=== PATIENT | female | born 1935 | race Caucasian/White ===

== ENCOUNTER 2021-07-10 12:45 | Observation (INO) ==
[2021-07-10] MEDS ORDERED: Ondansetron 4 MG/2 ML VIAL IVP ONE (12:51)
[2021-07-10] MEDS ORDERED: 0.9 % Sodium Chloride 500 ML IVC ONE (12:53)
[2021-07-10] MEDS ORDERED: 0.9 % Sodium Chloride 1,000 ML IVC SCH ×2 (13:00→15:54)
[2021-07-10 13:17] LABS: Bilirubin,Urine Negative (Negative); Blood,Urine Moderate (Negative); Clarity,Urine Clear (Clear); Color,Urine Yellow (Yellow); Glucose,Urine (UA) >=1000 mg/dL (Normal); Ketones,Urine Negative (Negative); Leukocyte Esterase,Urine Trace (Negative); Nitrite,Urine Negative (Negative); Protein,Urine 30 mg/dL (Neg-Trace); Specific Gravity,Urine 1.015 (1.010-1.025); Urobilinogen,Urine Normal (Normal)
[2021-07-10 13:24] LABS: Basophils % 0.2 %; Hematocrit 41.8 % (35.3-44.9); Hemoglobin 13.3 g/dL (11.5-15.4); Immature Granulocytes % 0.6 % (0-4); Lymphocytes # 0.6 K/mcL (0.6-4.6); Lymphocytes % 3.2 %; Mean Corpuscular HGB Conc 31.8 g/dL (31.6-35.5); Mean Corpuscular Hemoglobin 29.7 pg (28.0-33.3); Mean Corpuscular Volume 93.3 fL (83.0-100.0); Monocytes # 0.6 K/mcL (0.0-1.3); Monocytes % 3.3 %; Neutrophils # 16.4 K/mcL (1.6-8.9); Platelet Count 181 K/mcL (140-400); Red Blood Count 4.48 M/mcL (3.82-4.97); Red Cell Distribution Width 15.3 % (11.5-14.5); Segmented Neutrophils % 92.7 %; White Blood Count 17.7 K/mcL (4.3-11.1)
[2021-07-10 13:25] LABS: Squamous Epithelial Cell,Urine Few per hpf (None-Few)
[2021-07-10 13:32] LABS: INR 2.2; Prothrombin Time 24.6 Seconds (9.4-12.1)
[2021-07-10 13:34] LABS: Activated Partial Thrombo Time 35.1 Seconds (26.0-36.0)
[2021-07-10] MEDS ORDERED: cefTRIAXone 2,000 MG in 0.9 % Sodium Chloride Mini Bag 100 ML IVPB ONE (13:34)
[2021-07-10 13:43] LABS: Albumin 3.2 g/dL (3.5-5.7); Bilirubin,Total 1.1 mg/dL (0.3-1.0); Calcium 8.4 mg/dL (8.6-10.3); Globulin 3.2 g/dL (2.4-3.5); Magnesium 1.8 mg/dL (1.6-2.6); Potassium 4.5 mEq/L (3.5-5.1); Total Protein 6.4 g/dL (6.4-8.9); Troponin I 0.03 ng/mL (< 0.04)
[2021-07-10] MEDS ORDERED: Ondansetron 4 MG/2 ML VIAL IVP PRN (15:27)
[2021-07-10] MEDS ORDERED: Naloxone 0.4 MG/ML INJ IVP PRN (15:27)
[2021-07-10] MEDS ORDERED: Melatonin 3 MG TABLET PO PRN (15:27)
[2021-07-10] MEDS ORDERED: Mag Hydrox/Al Hydrox/Simeth 30 ML UDC PO PRN (15:27)
[2021-07-10] MEDS ORDERED: MOM Conc 10 ML UD.LIQ PO PRN (15:27)
[2021-07-10] MEDS ORDERED: *HR* Dextrose 50 % in Water (Syg) 50 ML SYRINGE IVP PRN (15:45)
[2021-07-10] MEDS ORDERED: Dextrose 4 GM Chewable Tablets PO PRN ×2 (15:45)
[2021-07-10] MEDS ORDERED: D5% in Water 1,000 ML IVC PRN (15:45)
[2021-07-10] MEDS ORDERED: DilTIAZem CD (24hr) 180 MG CAP.ER.24H PO STA (16:23)
[2021-07-10] MEDS ORDERED: Metoprolol XL (24 HR) Succ 25 MG TAB.ER.24H PO STA (16:23)
[2021-07-10] MEDS: Acetaminophen 325 MG TABLET PO PRN (17:25)
[2021-07-10] MEDS: *HR* Glimepiride 4 MG TABLET PO SCH (17:26)
[2021-07-10] MEDS: Insulin LISPRO 300 UNITS/3 ML VIAL SUBQ SCH ×2 (17:31→21:20)
[2021-07-10] MEDS: *HR* Rivaroxaban 15 MG TABLET PO SCH ×2 (17:57→18:04)
[2021-07-10] MEDS: Doxycycline 100 MG CAPSULE PO SCH (22:36)
[2021-07-10] MEDS: Nystatin POWDER 30 GM BOTTLE TP SCH (22:37)
[2021-07-11] MEDS: Acetaminophen 325 MG TABLET PO PRN (02:51)
[2021-07-11 07:31] LABS: Calcium 8.2 mg/dL (8.6-10.3); Potassium 4.2 mEq/L (3.5-5.1)
[2021-07-11 07:33] LABS: Basophils # 0.1 K/mcL (0.0-0.2); Basophils % 0.3 %; Eosinophils % 0.1 %; Immature Granulocytes % 0.3 % (0-4); Lymphocytes # 3.3 K/mcL (0.6-4.6); Lymphocytes % 19.2 %; Mean Corpuscular HGB Conc 30.4 g/dL (31.6-35.5); Mean Corpuscular Hemoglobin 30.3 pg (28.0-33.3); Mean Corpuscular Volume 99.6 fL (83.0-100.0); Mean Platelet Volume 10.4 fL (9.4-12.4); Monocytes # 1.3 K/mcL (0.0-1.3); Monocytes % 7.7 %; Neutrophils # 12.3 K/mcL (1.6-8.9); Platelet Count 175 K/mcL (140-400); Red Blood Count 4.62 M/mcL (3.82-4.97); Red Cell Distribution Width 15.9 % (11.5-14.5); Segmented Neutrophils % 72.4 %
[2021-07-11] MEDS: Insulin LISPRO 300 UNITS/3 ML VIAL SUBQ SCH ×4 (08:06→22:00)
[2021-07-11] MEDS: DilTIAZem CD (24hr) 180 MG CAP.ER.24H PO SCH (08:08)
[2021-07-11] MEDS: *HR* Glimepiride 4 MG TABLET PO SCH (08:08)
[2021-07-11] MEDS: Nystatin POWDER 30 GM BOTTLE TP SCH ×2 (08:09→22:00)
[2021-07-11] MEDS: Doxycycline 100 MG CAPSULE PO SCH (08:09)
[2021-07-11] MEDS: Metoprolol XL (24 HR) Succ 25 MG TAB.ER.24H PO SCH (08:09)
[2021-07-11] MEDS ORDERED: 0.9 % Sodium Chloride 1,000 ML IVC SCH (10:00)
[2021-07-11] MEDS ORDERED: cefTRIAXone 2,000 MG in 0.9 % Sodium Chloride Mini Bag 100 ML IVPB SCH (14:00)
[2021-07-11] MEDS ORDERED: *HR* Rivaroxaban 15 MG TABLET PO SCH (17:00)
[2021-07-12] MEDS: Metoprolol XL (24 HR) Succ 25 MG TAB.ER.24H PO SCH (07:52)
[2021-07-12] MEDS: DilTIAZem CD (24hr) 180 MG CAP.ER.24H PO SCH (07:52)
[2021-07-12] MEDS: Nystatin POWDER 30 GM BOTTLE TP SCH ×2 (07:53→21:40)
[2021-07-12] MEDS: Insulin LISPRO 300 UNITS/3 ML VIAL SUBQ SCH ×4 (07:54→21:40)
[2021-07-12 08:17] LABS: Basophils % 0.2 %; Eosinophils # 0.1 K/mcL (0.0-0.6); Eosinophils % 0.8 %; Hematocrit 43.2 % (35.3-44.9); Hemoglobin 13.7 g/dL (11.5-15.4); Immature Granulocytes % 0.4 % (0-4); Lymphocytes # 1.5 K/mcL (0.6-4.6); Lymphocytes % 17.5 %; Mean Corpuscular HGB Conc 31.7 g/dL (31.6-35.5); Mean Corpuscular Hemoglobin 29.7 pg (28.0-33.3); Mean Corpuscular Volume 93.7 fL (83.0-100.0); Monocytes # 1.2 K/mcL (0.0-1.3); Monocytes % 13.7 %; Neutrophils # 5.7 K/mcL (1.6-8.9); Platelet Count 190 K/mcL (140-400); Red Blood Count 4.61 M/mcL (3.82-4.97); Red Cell Distribution Width 15.7 % (11.5-14.5); Segmented Neutrophils % 67.4 %; White Blood Count 8.4 K/mcL (4.3-11.1)
[2021-07-12 08:34] LABS: Potassium 4.5 mEq/L (3.5-5.1)
[2021-07-12] MEDS: Cefdinir 300 MG CAPSULE PO SCH ×2 (14:21→21:37)
[2021-07-12] MEDS: *HR* Rivaroxaban 15 MG TABLET PO SCH (16:12)
[2021-07-13 05:49] LABS: Basophils % 0.4 %; Eosinophils # 0.2 K/mcL (0.0-0.6); Eosinophils % 2.5 %; Hematocrit 39.8 % (35.3-44.9); Hemoglobin 12.5 g/dL (11.5-15.4); Immature Granulocytes % 0.6 % (0-4); Lymphocytes # 1.9 K/mcL (0.6-4.6); Lymphocytes % 24.5 %; Mean Corpuscular HGB Conc 31.4 g/dL (31.6-35.5); Mean Corpuscular Hemoglobin 29.6 pg (28.0-33.3); Mean Corpuscular Volume 94.1 fL (83.0-100.0); Monocytes # 1.1 K/mcL (0.0-1.3); Monocytes % 14.2 %; Neutrophils # 4.5 K/mcL (1.6-8.9); Platelet Count 197 K/mcL (140-400); Red Blood Count 4.23 M/mcL (3.82-4.97); Red Cell Distribution Width 15.4 % (11.5-14.5); Segmented Neutrophils % 57.8 %; White Blood Count 7.8 K/mcL (4.3-11.1)
[2021-07-13 07:04] LABS: Potassium 4.8 mEq/L (3.5-5.1)
[2021-07-13 10:06] LABS: Estimated Average Glucose 169 mg/dl; Hemoglobin A1C 7.5 %
[2021-07-13] MEDS: Metoprolol XL (24 HR) Succ 25 MG TAB.ER.24H PO SCH (10:59)
[2021-07-13] MEDS: DilTIAZem CD (24hr) 180 MG CAP.ER.24H PO SCH (10:59)
[2021-07-13] MEDS: Cefdinir 300 MG CAPSULE PO SCH (10:59)
[2021-07-13] MEDS: Nystatin POWDER 30 GM BOTTLE TP SCH ×2 (11:08→22:06)
[2021-07-13] MEDS: Insulin LISPRO 300 UNITS/3 ML VIAL SUBQ SCH ×4 (11:08→22:05)
[2021-07-13] MEDS: Nitrofurantoin (BID) 100 MG CAPSULE PO SCH (18:03)
[2021-07-13] MEDS: Furosemide 20 MG TABLET PO SCH (18:04)
[2021-07-13] MEDS: *HR* Rivaroxaban 15 MG TABLET PO SCH (18:04)
[2021-07-14] MEDS: Insulin LISPRO 300 UNITS/3 ML VIAL SUBQ SCH ×2 (09:59→11:48)
[2021-07-14] MEDS: DilTIAZem CD (24hr) 180 MG CAP.ER.24H PO SCH (10:00)
[2021-07-14] MEDS: Nitrofurantoin (BID) 100 MG CAPSULE PO SCH (10:00)
[2021-07-14] MEDS: Metoprolol XL (24 HR) Succ 25 MG TAB.ER.24H PO SCH (10:00)
[2021-07-14] MEDS: Furosemide 20 MG TABLET PO SCH (10:01)
[2021-07-14] MEDS: Nystatin POWDER 30 GM BOTTLE TP SCH (10:01)
[2021-07-14 10:56] VITALS: BP 128/67; PULSE 83; RESP 14; TEMP 98; O2SAT 97
== END 2021-07-14 12:12 | disposition home health service (06) ==
LOC: EMEROOPIK 12:45 → INPPIK 12:45
PROVIDERS: ADMIT Internal Medicine; ATTEND Internal Medicine